=== PATIENT | male | born 1985 | race Caucasian/White ===

== ENCOUNTER 2023-02-19 17:28 | Emergency (ER) | payer SELFPAY ==
[2023-02-19 17:43] VITALS: BP 159/91; PULSE 96; RESP 16; TEMP 37.1; O2SAT 100; BMI 26.9
--- NOTE | 2023-02-19 18:39 | CTR_ITS ---
PROCEDURE INFORMATION: Exam: CT Right Upper Extremity With Contrast, Hand Exam date and time: 02/19/2023 7:39 PM Age: 37 years old Clinical indication: Pain; Hand; Right; Additional info: Infection, cellulitis R/O abscess TECHNIQUE: Imaging protocol: Computed tomography of the right upper extremity with contrast. Exam focused on the hand. Radiation optimization: All CT scans at this facility use at least one of these dose optimization techniques: automated exposure control; mA and/or kV adjustment per patient size (includes targeted exams where dose is matched to clinical indication); or iterative reconstruction. Contrast material: OMNI 350; Contrast volume: 100 ml; Contrast route: INTRAVENOUS (IV); REPORTING DATA: Count of CT and Cardiac NM exams in prior 12 months: This patient has received 0 known CTs and 0 known cardiac nuclear medicine studies in the 12 months prior to the current study. COMPARISON: No relevant prior studies available. RADIATION DOSE METRICS: Total DLP (mGy-cm): 157 FINDINGS: Bones/joints: Along the dorsal aspect of the medial hand (dorsal to the bases of the 4th and 5th metacarpals, there is a serpiginous rim enhancing fluid collection. Dominant component measures 1.6 x 1.8 x 0.7 cm (series 4, image 93 and series 9, image 30). There is a tract to a smaller more proximal collection measuring 1.9 x 1.3 x 0.4 cm (series 4, image 104 and series 9, image 30). No destructive bony lesions. No radiopaque foreign body. Soft tissues: There is extensive dorsal and medial soft tissue swelling. No soft tissue gas. No radiopaque foreign body. Vasculature: Visualized vessels are patent without convincing venous thrombus. CT/CT hand RT w con [id number] IMPRESSION: Extensive soft tissue swelling noted over the dorsum of the hand. There is a serpiginous dorsal fluid collection with 2 dominant components connected by a thin tract compatible with abscess, best seen on series 9, image 30.
--- NOTE | 2023-02-19 18:41 | ED_ITS ---
HPI - Skin/Abscess/Foreign Bdy 2 General: Chief complaint: Skin/Abscess/Foreign Body Stated complaint: right hand- elbow swollen/ possible infection Time Seen by Provider: 02/19/23 18:26 History of Present Illness: Patient presents to the ER with complaints of right hand swelling painful, thinks he got bit by a spider approximately 3 days ago. Has been swelling and increasing pain since then. The initial bite appears to be on the dorsum of the right hand with swelling and erythema going at least up to his wrist. With tenderness going about longterm up his arm. Patient does have movement in all digits but moving them makes him worse. As far as the pain goes. Patient does not take anything prior to arrival. Patient is not allergic to anything. Review of Systems 2 General: Reports: 10 or more systems reviewed and unremarkable except in HPI and below Physical Exam 2 Const: COMMON NORMALS: no acute distress, average body habitus, patient oriented x3, no limitations, healthy appearing, alert and well nourished HENMT: COMMON NORMALS: normocephalic, atraumatic, hearing grossly normal bilaterally, external ears normal, Normal external nose present, moist oral mucous membranes and oropharynx normal HEAD & SCALP: normocephalic and atraumatic NOSE: Normal external nose present EXTERNAL EAR: Yes external ears normal Neck/C-Spine: COMMON NORMALS: full ROM, no lymphadenopathy, supple, no meningeal signs, no JVD and Thyroid normal THYROID: Thyroid normal Chest: COMMONS NORMALS: normal inspection of the chest and normal palpation of entire chest wall Resp: COMMON NORMALS: normal respiratory effort, No retractions, No use of accessory muscles and clear to auscultation bilaterally AUSCULTATION: clear to auscultation bilaterally Cardio: COMMON NORMALS: no JVD, regular rate, regular rhythm, S1 normal heart sound present, S2 normal heart sound present, No gallops present (Cardio), No clicks present (Cardio), No murmurs present (Cardio) and No rub (Cardio) R ATE: regular rate RHYTHM: regular rhythm HEART SOUNDS: S1 normal heart sound present and S2 normal heart sound present GI: COMMON NORMALS: Normal to inspection, nondistended, normoactive bowel sounds present, Soft to palpation, non-tender, No hepatosplenomegaly present and no masses PALPATION: Yes Soft to palpation and Yes No hepatosplenomegaly present Extremity: NARRATIVE EXTREMITY EXAM: Redness and swelling to the dorsum of right hand going up at least into the wrist area. Tenderness goes all the way up to the mid forearm. Neuro: COMMON NORMALS: patient oriented x3 SENSORIUM/ORIENTATION: Yes alert MENINGEAL SIGNS: Yes no meningeal signs Course 2 Vital Signs: Vital signs: Vital Signs Temperature 98.7 F 02/19/23 17:43 Pulse Rate 83 02/19/23 20:29 Respiratory Rate 18 02/19/23 20:29 Blood Pressure 128/78 02/19/23 20:29 Pulse Oximetry 96 02/19/23 20:29 Oxygen Delivery Me thod Room Air 02/19/23 20:29 MDM - Skin/Abscess/Foreign Bdy Medicial Decision Making Patient presents to the ER with a possible spider bite on his dorsum of his right hand Ortho was consulted Dr. Martinez does not do hands. Dr. Valencia general surgery was consulted and he says he does not do hands either. Upon talking to patient explaining these results and the consult with his doctors and the need to be transferred to [place] to a hand surgeon to have this opened up and drained patient is inclined to not want to do this. It was described in detail since these are abscesses a they probably will not resolve with antibiotics alone. Patient said he is willing to take the chance on p.o. antibiotics and he can come back if they do not resolve. I said this is AGAINST MEDICAL ADVICE and letting him go home on oral antibiotics so he will have to sign AMA form but we will prescribe him Levaquin 500 mg 1 pill once a day for 10 days. Differential Diagnosis Likely abscess of skin or subcutaneous tissue and cellulitis; Unlikely viral exanthem, dermatophytosis, urticaria, herpes zoster, allergic reaction to drug, eczema, insect bites, impetigo or contact dermatitis Medical Records I reviewed the patient's medical records. Lab Data I reviewed the patient's lab results. 02/19/23 18:30 02/19/23 18:[address] 02/19/23 18:39 IMPRESSION: Extensive soft tissue swelling noted over the dorsum of the hand. There is a serpiginous dorsal fluid collection with 2 dominant components connected by a thin tract compatible with abscess, best seen on series 9, image 30. Laboratory Results WBC 11.01 10^3/uL (3.29-11.43) 02/19/23 18:30 RBC 5.57 10^6/uL (3.85-5.65) 02/19/23 18: Hgb 17.00 g/dL (11.27-16.99) H 02/19/23 18:30 Hct 50.0 % (37-53) 02/19/23 18:30 MCV 89.8 fl (82-101) 02/19/23 18: MCH 30.5 pg (27-33) 02/19/23 18: MCHC 34.0 g/dL (30-55) 02/19/23 18: RDW 11.9 % (12.1-15.1) L 02/19/23 18: Plt Count 330 10^3/cmm (157-399) 02/19/23 18: MPV 9.1 fL (7.4-10.4) 02/19/23 18:30 Neut % (Auto) 71.5 % 02/19/23 18:30 Lymph % (Auto) 20.9 % 02/19/23 18:30 [place] % (Auto) 6.0 % 02/19/23 18:30 Eos % (Auto) 0.9 % 02/19/23 18: Baso % (Auto) 0.5 % 02/19/23 18: Neut # (Auto) 7.87 10^3/uL (1.8-7.7) H 02/19/23 18:30 Lymph # (Auto) 2.3 10^3/uL (0.8-4.8) 02/19/23 18:30 [place] # (Auto) 0.7 10^3/uL (0.2-0.9) 02/19/23 18:30 Eos # (Auto) 0.1 10^3/uL (0.0-0.8) 02/19/23 18: Baso # (Auto) 0.1 10^3/uL (0.0-0.1) 02/19/23 18:30 Nucleated RBC % (auto) 0 % 02/19/23 18:30 Nucleated RBCs # 0.0 /100WBC 02/19/23 18: Sodium 135 mmol/L (136-145) L 02/19/23 18:30 Potassium 3.9 mmol/L (3.5-5.1) 02/19/23 18:30 Chloride 99 mmol/L (98-107) 02/19/23 18:30 Carbon Dioxide 22 mmol/L (22-29) 02/19/23 18:30 Anion Gap 17.9 (5-19) 02/19/23 18:30 BUN 7 mg/dL (6-20) 02/19/23 18:30 Creatinine 0.7 mg/dL (0.7-1.2) 02/19/23 18:30 GFR Calculation 126.2 mL/min (90-130) 02/19/23 18:30 Glucose 147 mg/dL (65-115) H 02/19/23 18:30 Calculated Osmolality 281 mOsm/kg (285-295) L 02/19/23 18:30 Lactic Acid 1.9 mmol/L (0.5-2.2) 02/19/23 18:30 Calcium 9.4 mg/dL (8.5-10.5) 02/19/23 18:30 Total Bilirubin 0.7 mg/dL (0.15-1.2) 02/19/23 18:30 AST 9 U/L (0-40) 02/19/23 18:30 ALT 17 U/L (0-41) 02/19/23 18:30 Alkaline Phosphatase 77 U/L (40-130) 02/19/23 18:30 C-Reactive Protein 85.6 mg/L (0.0-4.9) H 02/19/23 18:30 Total Protein 7.9 g/dL (6.6-8.7) 02/19/23 18:30 Albumin 4.3 g/dL (3.5-5.2) 02/19/23 18:30 Globulin 3.6 g/dL (1.3-4.6) 02/19/23 18:30 Procalcitonin 0.06 ng/mL (0-0.5) 02/19/23 18:30 All radiology interpretation(s) finalized by discharge Discharge Plan Discharge Patient Disposition: Left Against Medical Advice Clinical Impression: Abscess of skin or subcutaneous tissue Qualifiers: Site of cutaneous abscess: extremity Site of cutaneous abscess of extremity: h and Laterality: right Qualified Code(s): L02.511 - Cutaneous abscess of right hand Condition: Stable Prescriptions: New levofloxacin 500 mg tablet 500 mg PO DAILY 10 Days Qty: 10 0RF hydrocodone-acetaminophen 5-325 mg tablet 1 tab PO Q6H PRN (Reason: pain) Qty: 10 0RF Referrals: Oscar Silva MD [Primary Care Provider] - 1 week Patient Instructions: Abscess (ED), Against Medical Advice (ED) Activity Restrictions/Additional Instructions: Please take all your antibiotics as described. Please watch for red streaking, worsening pain, worsening purulent debris/discharge, fever or chills,. If any these happen please return to the ER immediately for further evaluation and treatment. Coding Level of Care Code ED Transit Vehicle Inspector for Jyotsna Pool
[2023-02-19 18:48] LABS: Basophils # 0.1 10^3/uL (0.0-0.1); Basophils % 0.5 %; Eosinophils # 0.1 10^3/uL (0.0-0.8); Eosinophils % 0.9 %; Lymphocytes # 2.3 10^3/uL (0.8-4.8); Lymphocytes % 20.9 %; Mean Corpuscular Hemoglobin 30.5 pg (27-33); Mean Corpuscular Volume 89.8 fl (82-101); Mean Platelet Volume 9.1 fL (7.4-10.4); Monocytes # 0.7 10^3/uL (0.2-0.9); Neutrophils # 7.87 10^3/uL (1.8-7.7); Neutrophils % 71.5 %; Nucleated Red Blood Cells % 0 %; Platelet Count 330 10^3/cmm (157-399); Red Blood Count 5.57 10^6/uL (3.85-5.65); Red Cell Distribution Width 11.9 % (12.1-15.1); White Blood Count 11.01 10^3/uL (3.29-11.43)
[2023-02-19 19:01] LABS: Alanine Aminotransferase 17 U/L (0-41); Albumin Level 4.3 g/dL (3.5-5.2); Alkaline Phosphatase 77 U/L (40-130); Anion Gap 17.9 (5-19); Aspartate Amino Transferase 9 U/L (0-40); Blood Urea Nitrogen 7 mg/dL (6-20); C Reactive Protein 85.6 mg/L (0.0-4.9); Calcium 9.4 mg/dL (8.5-10.5); Carbon Dioxide 22 mmol/L (22-29); Chloride 99 mmol/L (98-107); Globulin 3.6 g/dL (1.3-4.6); Glomerular Filtration Rate 126.2 mL/min (90-130); Glucose 147 mg/dL (65-115); Osmolality Calculated 281 mOsm/kg (285-295); Potassium 3.9 mmol/L (3.5-5.1); Sodium 135 mmol/L (136-145); Total Bilirubin 0.7 mg/dL (0.15-1.2); Total Protein 7.9 g/dL (6.6-8.7)
[2023-02-19 19:02] LABS: Lactic Sepsis W/Reflex 1.9 mmol/L (0.5-2.2)
[2023-02-19 19:08] LABS: Procalcitonin 0.06 ng/mL (0-0.5)
[2023-02-19] MEDS: ketorolac 30 mg/mL INJ IVP (19:08)
[2023-02-19] MEDS: piperacillin-tazobactam 3.375 GM in sodium chloride 0.9% (plus) 50 ML IV (19:10)
[2023-02-19 19:12] VITALS: BP 128/77; PULSE 88; RESP 16; O2SAT 96
[2023-02-19 19:30] VITALS: BP 119/76; PULSE 81; RESP 16; O2SAT 97
[2023-02-19] MEDS: iohexol 350 mg/mL 500 mL Btl (per mL) IV (19:55)
[2023-02-19 20:29] VITALS: BP 128/78; PULSE 83; RESP 18; O2SAT 96
--- NOTE | 2023-02-19 21:02 | PC.NURSE ---
Pt sent home with 2x Hydrocodone 5/[address] Miranda's orders.
[2023-02-19 21:05] VITALS: BP 131/81; PULSE 88; RESP 18; O2SAT 96
== END 2023-02-19 21:00 | disposition left against medical advice (07) ==
PROVIDERS: Emergency Provider Emergency Medicine; Family Provider Family Medicine; PCP Family Medicine
DX: L02.511 Cutaneous abscess of right hand (principal); Z53.29 Procedure and treatment not carried out because of patient's decision for other reasons
CPT/HCPCS: 73201; 80053; 83605; 84145; 85025; 86140; 87040; 87070; 87077; 87186; 87205; 96365; 96375; 99285; J1885; J2543; Q9967

== ENCOUNTER 2024-06-28 12:53 | Emergency (ER) | payer SELFPAY ==
--- NOTE | 2024-06-28 12:54 | XRR_ITS ---
PROCEDURE INFORMATION: Exam: XR Left Foot Exam date and time: 06/28/2024 1:17 PM Age: 39 years old Clinical indication: Injury or trauma; Other: Fall from roof; Blunt trauma; Foot; Left TECHNIQUE: Imaging protocol: Radiologic exam of the left foot. Views: 3 or more views. COMPARISON: CR XR ankle LT min 3V* [id number] 06/28/2024 1:16 PM FINDINGS: Bones/joints: Normal. No fracture, dislocation or malalignment. Joint surfaces are perserved. Soft tissues: Normal. XR/XR foot LT min 3V* [id number] IMPRESSION: No acute bony abnormalities.
--- NOTE | 2024-06-28 12:54 | XRR_ITS ---
PROCEDURE INFORMATION: Exam: XR Left Ankle Exam date and time: 06/28/2024 1:16 PM Age: 39 years old Clinical indication: Injury or trauma; Other: Fall from roof; Blunt trauma; Ankle; Left TECHNIQUE: Imaging protocol: Radiologic exam of the left ankle. Views: 3 or more views. COMPARISON: No relevant prior studies available. FINDINGS: Bones/joints: Osseous structures are intact. No fracture or malalignment. Visualized joint surfaces are preserved. Soft tissues: Unremarkable. XR/XR ankle LT min 3V* [id number] IMPRESSION: Negative exam. No acute bony abnormalities.
--- NOTE | 2024-06-28 12:54 | XRR_ITS ---
PROCEDURE INFORMATION: Exam: XR Right Ankle Exam date and time: 06/28/2024 1:14 PM Age: 39 years old Clinical indication: Injury or trauma; Other: Fall from roof; Blunt trauma; Ankle; Right TECHNIQUE: Imaging protocol: Radiologic exam of the right ankle. Views: 3 or more views. COMPARISON: CR XR foot RT min 3V* [id number] 06/28/2024 1:09 PM FINDINGS: Bones/joints: There is a comminuted displaced fracture of the calcaneus extending from the posterior tuberosity into the body of the calcaneus. There is probable extension to the subtalar joint as well as the anterior process of the calcaneus. Findings result in some displacement and flattening of Boehler's angle. The ankle mortise is preserved. Soft tissues: Unremarkable. XR/XR ankle RT min 3V* [id number] IMPRESSION: Acute comminuted calcaneal fracture which could be further assessed on CT examination of the ankle.
--- NOTE | 2024-06-28 12:54 | XRR_ITS ---
PROCEDURE INFORMATION: Exam: XR Right Foot Exam date and time: 06/28/2024 1:09 PM Age: 39 years old Clinical indication: Injury or trauma; Other: Fall from roof; Blunt trauma; Foot; Right TECHNIQUE: Imaging protocol: Radiologic exam of the right foot. Views: 3 or more views. COMPARISON: No relevant prior studies available. FINDINGS: Bones/joints: There is a acute comminuted fracture involving the calcaneus extending from the posterior calcaneal margin into the body of the calcaneus with probable extension to the subtalar joint. The anterior process of the calcaneus also appears to be fractured. Findings could be further assessed on CT exam. Remainder of the visualized osseous structures and joint surfaces are intact. Soft tissues: Normal. XR/XR foot RT min 3V* [id number] IMPRESSION: Acute comminuted calcaneal fracture which could be further assessed on CT exam.
[2024-06-28 13:04] VITALS: BP 102/65; PULSE 75; RESP 18; TEMP 36.4; O2SAT 97
--- NOTE | 2024-06-28 13:55 | ED_ITS ---
HPI - Fall General: Chief Complaint: Fall Stated Complaint: fall (both ankles injured) Time Seen by Provider: 06/28/24 13:10 Source: patient Mode of arrival: wheelchair Limitations: no limitations History of Present Illness: Patient is a 39-year-old male who presents to the ED today for evaluation mainly involving his right foot after he fell from a roof at a height of approximately 15 feet. Patient states he landed directly on his bilateral feet and ankles. He is complaining mainly of pain to his right foot/heel. He has some mild lower back pain. He denies striking his head or LOC. No neck pain. Patient states he is not able to bear weight due to the pain of his feet and ankles. MD complaint: fall Onset (ago): hour(s) Fall from: from height (distance) (15 ft) Fall witnessed: yes, by bystander Place fall occurred: work Loss of consciousness: None Prolonged down time: no Symptoms prior to fall: none Context: tripped/slipped Location of injury - extremities: Bilateral: ankle and foot Severity: severe Severity scale (1-10): >10 Associated symptoms-after fall: Reports no associated symptoms and difficulty walking (due to heel pain); Denies abdominal pain, chest pain, headache(s), hematuria, lightheadedness or neck pain Related Data Previous Rx's ?Medication ?Instructions ?Recorded hydrocodone 10 mg-acetaminophen 1 tab PO .q 4-6 PRN pa in #20 tabs 06/28/24 325 mg tablet Allergies Allergy/AdvReac Type Severity Reaction Status Date / Time No Known Allergies Allergy Verified 06/28/24 13:08 Review of Systems Eyes: Denies: change in vision, blurry vision, photophobia, eye discharge, floaters or seeing flashes ENMT: Denies: throat pain, odynophagia, ear or mastoid pain, ear discharge, nasal discharge, epistaxis or sinus pain Card: Denies: chest pain, palpitations, lightheadedness, syncope or pre- syncope Resp: Denies: dyspnea or pain on inspiration GI: Denies: abdominal pain : Denies: flank pain or hematuria Musc: Reports: back pain, extremity pain (bilateral feet), joint pain (bilateral ankles) and limited range of motion; Denies: neck pain Neuro: Reports: difficulty walking (due to heel pain); Denies: headache(s), numbness in extremities, weakness in extremities, sensory changes or dizziness Physical Exam Const: COMMON NORMALS: average body habitus, patient oriented x3, no limitations, healthy appearing, alert and well nourished GENERAL APPEARANCE: cooperative and in distress (uncomfortable appearing due to pain in R foot) ORIENTATION/CONSCIOUSNESS: Yes awake, Yes oriented to person, Yes oriented to place and Yes oriented to time HENMT: COMMON NORMALS: normocephalic, atraumatic and TM's normal bilaterally HEAD & SCALP: normal to inspection, normocephalic and atraumatic; no Diaz's sign, no hematoma and no raccoon eyes FACE & SINUS: normal facial exam TYMPANIC MEMBRANE: TM's normal bilaterally MOUTH: other (no intraoral injuries noted) Eye: COMMON NORMALS: Equal, round and reactive pupils present and EOMs intact bilaterally GENERAL EYE: appearance normal, both eyes and all related structures and normal light reflex PUPIL: Yes Equal, round and reactive pupils present DIRECT OPHTHALMOSCOPY: Yes normal light reflex Neck/C-Spine: COMMON NORMALS: full ROM GENERAL: Yes normal visual inspection CERVICAL SPINE: Yes cervical ROM normal, No pain with cervical ROM, No Cervical spine tenderness, No step off deformity and No Paracervical muscle tenderness Chest: COMMONS NORMALS: normal inspection of the chest and normal palpation of entire chest wall Resp: COMMON NORMALS: normal respiratory effort and clear to auscultation bilaterally AUSCULTATION: clear to auscultation bilaterally Cardio: COMMON NORMALS: regular rate and regular rhythm RATE: regular rate RHYTHM: regular rhythm GI: COMMON NORMALS: Normal to inspection, nondistended, normoactive bowel sounds present, Soft to palpation, non-tender, No hepatosplenomegaly present and no masses INSPECTION: Yes normal to inspection and No abdominal wall ecchymosis AUSCULTATION: Yes normoactive bowel sounds PALPATION: Yes Soft to palpation and Yes No hepatosplenomegaly present Back/Pelvis: COMMON NORMALS: thoracic and lumbar spine normal to inspection, thoraco-lumbar ROM normal and straight leg raise negative bilaterally THORACIC SPINE/UPPER BACK: No thoracic spinal tenderness LUMBAR SPINE/LOWER BACK: Yes paraspinal muscle tenderness PELVIS: Yes buttocks normal SACROILIAC JOINTS: Yes SI joints normal SACRUM: no tenderness COCCYX: no tenderness Extremity: COMMON NORMALS: normal to inspection, capillary refill normal and no calf tenderness GENERAL: Yes normal exam except as noted RIGHT LOWER EXTREMITY: Yes foot & digits and Yes foot & digits LEFT LOWER EXTREMITY: Yes ankle joint and Yes foot & digits OTHER: pain to bilateral ankles/heels; bilateral heel contusions present; edema mainly involving R calcaneous; NV intact Neuro: CASS COMA SCALE: document GCS findings [place] coma scale eye opening: Spontaneous [place] coma scale verbal response: Orientated [place] coma scale motor response: Obey commands [place] coma scale total score: 15 COMMON NORMALS: patient oriented x3, CN's II-XII intact bilaterally, moves all extremities, no focal motor deficits and no sensory deficits noted SENSOR IUM/ORIENTATION: Yes alert, Yes oriented to person, Yes oriented to place and Yes oriented to time SPEECH: speech normal GAIT: Yes Normal gait present Skin: TRAUMA: no lacerations or abrasions Course Consultations: Consultation #1: Dr. Morris-recommending CT imaging of calcaneal fracture for surgical planning; splint/crutches/will see him tomorrow at 12:45 Vital Signs: Vital signs: Vital Signs Temperature 97.5 F L 06/28/24 13:04 Pulse Rate 76 06/28/24 14:40 Respiratory Rate 18 06/28/24 13:04 Blood Pressure 102/65 06/28/24 13:04 Pulse Oximetry 97 06/28/24 14:40 Oxygen Delivery Me thod Room Air 06/28/24 14:40 MDM - Fall Medical Decision Making Patient here for main complaint of right heel pain after a fall from a roof at a height of 15 feet. He was found to have a severely comminuted calcaneal fracture. This will be surgical. CT imaging obtained at the request of podiatry. He will be splinted and follow-up with them at 12:45 tomorrow. Imaging of his back and pelvis obtained and was negative. He had some tenderness to the left foot and ankle as well although x-ray imaging is unremarkable. Patient was given crutches. He states he does have a wheelchair at home he may use as well. He will be prescribed pain medications. Recommend ice and elevation as well. Medical Records I reviewed the patient's medical records. Lab Data I reviewed the patient's lab results. Radiology Impressions Ankle X-Ray 06/28/24 12:54 IMPRESSION: Acute comminuted calcaneal fracture which could be further assessed on CT examination of the ankle. ADDENDUM: 06/28/24 1442 There are 2 corticated bony structures adjacent to the inferolateral margin of the calcaneus likely representing a bipartite accessory ossicle that is developmental in nature. Foot X-Ray 06/28/24 12:54 IMPRESSION: Acute comminuted calcaneal fracture which could be further assessed on CT exam. Foot CT 06/28/24 13:56 IMPRESSION: 1. Severely comminuted calcaneal fracture involving all surfaces including the posterior subtalar joint. 2. Loss of the normal Boehler angle. 3. Fracture fragments abut the peroneal tendons and sheath. No entrapment of the tendons by the fracture but the peroneus brevis and longus are slightly by a fracture fragment. Lumbar Spine X-Ray 06/28/24 14:09 IMPRESSION: No acute bony abnormalities. Pelvis X-Ray 06/28/24 14:09 IMPRESSION: No acute bony abnormalities.. All radiology interpretation(s) finalized by discharge Discharge Plan Discharge Patient Disposition: Home Clinical Impression: Fall from roof, Closed fracture of right calcaneus Condition: Stable Prescriptions: New hydrocodone-acetaminophen 10-325 mg tablet 1 tab PO .q 4-6 PRN (Reason: pain) Qty: 20 0RF Discontinued hydrocodone-acetaminophen 5-325 mg tablet 1 tab PO Q6H PRN (Reason: pain) Qty: 10 0RF Discharge Orders: Discharge ED (Routine); Ordered 06/28/24 Ordered By: Jessica Vargas Referrals: Lior Morris DPM [Physician] - Patient Instructions: Calcaneal Fracture (ED), Opioid Safety, Pain Management Activity Restrictions/Additional Instructions: As we discussed, absolutely no weight bearing on your right heel. You need to stay in your splint until your follow-up appointment with Dr. Morris tomorrow. He will see you at 12:45 tomorrow. Please arrive early for this appointment. We have given you crutches prior to discharge. Due to the contusion of your left foot and ankle you are not sure if you could use these. You did indicate you have a wheelchair at home you may use. You need to ice and elevate the right leg to help with pain/swelling. You need to take your pain medications around the clock over the next 24-48 hours to keep ahead of your pain. Print Language: Eritrean Coding Level of Care Code ED Circuit Clerk for Jyotsna Pool
--- NOTE | 2024-06-28 13:56 | CT_ITS ---
WS: [id number] CT RIGHT FOOT, NONCONTRAST HISTORY: calcaneal fracture Technique: All CT scans at [facility] use at least one of these dose optimization techniques: automated exposure control; mA and/or kV adjustment per patient size (includes targeted exams where dose is matched to clinical indication); or iterative reconstruction. DLP: 160.42 mGy.cm COMPARISON: Radiograph 06/28/2024. Severely comminuted fractures involving the entire RIGHT calcaneus. There are vertical, oblique and horizontal components extending extra-articular and intra- articular. Multiple fracture lines extend to involve the medial and lateral surfaces of the calcaneus and the posterior subtalar joint. There are multiple osseous fragments. There is subtalar joint involvement and a fracture through the base of the anterior calcaneal process. Fractures extend to the plantar surface. There is loss of the normal Bohler angle. Cuboid and the metatarsals are intact. Talus appears intact. The distal tibia- fibula are intact. No widening of the Lisfranc articulation. Large amount of edema surrounding the calcaneus. Peroneal tendons are closely associated with the fracture of the lateral calcaneus. No entrapment but there may be slight separation. CT/CT foot RT wo con* [id number] IMPRESSION: 1. Severely comminuted calcaneal fracture involving all surfaces including the posterior subtalar joint. 2. Loss of the normal Boehler angle. 3. Fracture fragments abut the peroneal tendons and sheath. No entrapment of t he tendons by the fracture but the peroneus brevis and longus are slightly sepa rated by a fracture fragment.
--- NOTE | 2024-06-28 14:09 | XRR_ITS ---
PROCEDURE INFORMATION: Exam: XR Lumbosacral Spine Exam date and time: 06/28/2024 3:08 PM Age: 39 years old Clinical indication: Injury or trauma; Fall; Blunt trauma (contusions or hematomas) TECHNIQUE: Imaging protocol: Radiologic exam of the lumbosacral spine. Views: 2 or 3 views. COMPARISON: CR XR pelvis 1-2V* [id number] 06/28/2024 3:08 PM FINDINGS: Bones/joints: Lumbar curvature and alignment is unremarkable. Mild-moderate degenerative changes throughout the lower thoracic and mid-lower lumbar spine with mild disc space narrowing and endplate sclerosis. There is some accompanying facet arthrosis lower lumbar spine. There are no compression fractures detected. No spondylolisthesis. Pedicles are intact Soft tissues: Unremarkable. XR/XR lumbar spine 2-3V* [id number] IMPRESSION: No acute bony abnormalities.
--- NOTE | 2024-06-28 14:09 | XRR_ITS ---
PROCEDURE INFORMATION: Exam: XR Pelvis Exam date and time: 06/28/2024 3:08 PM Age: 39 years old Clinical indication: Injury or trauma; Fall; Blunt trauma (contusions or hematomas); Bilateral; Pelvic region TECHNIQUE: Imaging protocol: Radiologic exam of the pelvis. Views: 1 or 2 view. COMPARISON: CR XR lumbar spine 2-3V* [id number] 06/28/2024 3:08 PM FINDINGS: Bones/joints: Unremarkable. No fracture, malalignment or deformity detected. No significant degenerative joint changes. Soft tissues: There is a 4 mm rounded metallic density projecting along the medial aspect of the upper thigh that may be extraneous to the patient with small foreign body to the excluded.. XR/XR pelvis 1-2V* [id number] IMPRESSION: No acute bony abnormalities..
[2024-06-28] MEDS: morphine 4 mg/mL SDV 1 mL IM (14:37)
[2024-06-28] MEDS: ondansetron 2 mg/ML SDV 2 mL 4 MG IM (14:37)
[2024-06-28 14:40] VITALS: PULSE 76; O2SAT 97
[2024-06-28] MEDS: HYDROmorphone 0.5 MG/0.5 ML INJ 1 MG SUBCUT (16:00)
[2024-06-28 16:21] VITALS: BP 110/68; PULSE 91; O2SAT 99
== END 2024-06-28 16:23 | disposition home or self-care (01) ==
PROVIDERS: Emergency Provider Physician Assistant; PCP Family Medicine
DX: S92.041A Displaced other fracture of tuberosity of right calcaneus, initial encounter for closed fracture (principal); M25.572 Pain in left ankle and joints of left foot; W13.2XXA Fall from, out of or through roof, initial encounter; M54.50 Low back pain, unspecified
CPT/HCPCS: 29515; 72100; 72170; 73610; 73630; 73700; 96372; 99284; E0114; J1171; J2270; J2405

== ENCOUNTER 2024-07-01 11:44 | Day surgery (SDC) | payer SELFPAY ==
[2024-07-01] VITALS (8 sets, daily range): BP systolic 90–123; BP diastolic 40–69; PULSE 69–92; RESP 16–20; TEMP 36.2–36.6; O2SAT 94–100; BMI 26.9
--- NOTE | 2024-07-01 12:13 | W.PM.OPSUD ---
Surgery/Procedure H&P Update DATE OF PROCEDURE: July 01, 2024 DATE H&P PERFORMED: 06/29/24 H&P UPDATE INFORMATION: I have reviewed H&P completed within last 30 days, I have examined patient prior to procedure, No changes to prior documentation and Risks and benefits of the procedure reviewed PREOP DIAGNOSIS: Right calcaneal fracture PLANNED PROCEDURE: Operation Date: 07/01/24 13:35 Proposed Procedures p RIGHT ORIF Calcaneous(Right) - Lior Morris DPM
[2024-07-01] MEDS: gabapentin 300 mg Capsule PO (12:23)
[2024-07-01] MEDS: CELEcoxib 200 mg Capsule 400 MG PO (12:24)
[2024-07-01] MEDS: sodium chloride 0.9% 1,000 ML 30 ML IV (12:25)
--- NOTE | 2024-07-01 12:28 | ANES.PREANE2 ---
Pre-Anesthetic Assessment Height/Weight: Height 6 ft 2 in Weight 210 lb O2 Del Method Room Air 07/01/24 12:08 Preop Diagnosis: Right calcaneal fracture Operation Date: 07/01/24 13:35 Proposed Procedures p RIGHT ORIF Calcaneous(Right) - LINNETTE HdezM Was Beta Nitin taken within 24 hours: N/A Was Clonidine taken within 24 hours: N/A Last intake: Intake Last Liquid Date 06/30/24 Last Liquid Time 22:30 Last Solid Date 06/30/24 Last Solid Time 22:30 Social Tobacco and No alcohol Exam alert, oriented x 3, clear to auscultation bilaterally and regular rate & rhythm Airway Submandibular: within normal limits Cervical ROM: within normal limits Mallampati: Class I Dentition: full Comments: Comments: poor dentition, denies any loose teeth Anesthetic Plan ASA status: 2 Anesthesia: General and Regional (specify below) Other: No prior issues with anesthesia NPO since yesterday evening Patient is a very active individual, 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 Current smoker Denies any cardiac issues Plan for general anesthesia with post induction nerve block Medications/Allergies Home Medications ?Medication ?Instructions ?Recorded ?Confirmed ?Last Taken ?Type ibuprofen 400 mg tablet 1,000 mg PO TID 06/30/24 06/30/24 06/30/24 History cyclobenzaprine 10 mg tablet 10 mg PO TID PRN muscle spasm #21 07/01/24 Unknown Rx tabs gabapentin 100 mg capsule 100 mg PO TID PRN pain (scale 07/01/24 Unknown Rx score 4-6) 10 days #30 caps hydrocodone 10 mg-acetaminophen 1 tab PO Q6H PRN pain 7 days #28 07/01/24 Unknown Rx 325 mg tablet tabs Allergies Allergy/AdvReac Type Severity Reaction Status Date / Time No Known Allergies Allergy Verified 06/29/24 12:44 Current Medications Generic Name Dose Route Start Last Admin Trade Name Freq PRN Reason Stop Dose Admin Sodium Chloride 1,000 mls @ 30 mls/hr 07/01/24 12:00 07/01/24 12:25 Sodium Chloride 0.9% IV 07/02/24 11:59 30 mls/hr .Q24H FILOMENA Administration PFSH Anesthesia Social History (Updated 06/29/24 @ 12:51 by Gurvinder Myers LPN) Smoking and tobacco/nicotine status: never used tobacco/nicotine Alcohol intake: never Substance/Drug Use: never Data Anesthesia Cardiac Studies: No Data to Display
[2024-07-01] MEDS: ceFAZolin 2,000 mg SDV 2000 MG IVP (12:45)
[2024-07-01] MEDS: tranexamic acid 1,000 mg/10mL SDV 1000 MG IV (13:00)
--- NOTE | 2024-07-01 13:00 | ANES.PROC ---
Anesthesia Procedures Procedure/Date: 07/01/24 Nerve Block ^: Nerve Block 1: Main Anesthesia: general anesthesia Time Out Performed: Yes Consent: requested by attending/covering physician and from patient Nerve block location: popliteal Anesthesia monitors applied: pulse oximetry, EKG, BP cuff and oxygen Nerve block position: supine Anesthetic Used: ropivicaine 0.5% Amount of anesthesia used (mL): 30 Ultrasound used to: recognize landmarks Interscalene/Femoral BLK: other needle (pjunk) Injection: neg aspiration of heme Patient Tolerated Procedure: well Complications: none Additional Comments: decadron 4mg
--- NOTE | 2024-07-01 13:49 | P.BOP_ITS ---
Date of Procedure: 05/29/23 Surgeon: Lior Morris DPM Dye Machine Tender(s): Trino Lopez Procedure(s) performed: Open reduction internal fixation right calcaneus Findings of the procedure(s): Right calcaneal fracture tongue type Estimated blood loss: 5 mL Specimen(s) removed: No specimens Post-operative diagnosis: Right calcaneal fracture
--- NOTE | 2024-07-01 13:50 | P.OP_ITS ---
Operative Report Date of procedure: July 01, 2024 Pre-op diagnosis: Closed fracture of right calcaneus S92.014A Post-op diagnosis: Closed fracture of right calcaneus S92.014A Procedure done: Open reduction internal fixation right calcaneus. CPT code 44894 Implants: [place] 5.5 mm cannulated screw x 2, 4 nylon Specimens removed/disposition: No specimens removed Surgeon: Lior Morris DPM Supervisor Ben[employer] Refining: Jessica Jameson Estimated blood loss: 5 22 minutes IV fluids: See intraoperative documentation Urine output: None Complications: None Brief History: Patient examined and evaluated, findings and treatment options discussed with patient at length. He sustained a complex comminuted fracture of the right calcaneus after a 15 foot fall off of a roof. X-ray of the right foot as well as CT scan of the right foot per my interpretation that were taken on June 28, 2024 demonstrate a complex calcaneal fracture fracture has extended into the subtalar joint also into the calcaneocuboid joint he has a interpositional fragment also has a tongue type body fracture that is more than 5 mm displaced. There is no necrosis of skin at the posterior heel, I explained to the patient that this is of concern given the tongue type fracture pattern. Advised patient to elevate his foot remain strict nonweightbearing and help to control edema by elevation and ice behind the knee in preparation for surgery this week if insurance authorization is is not obtained and soft tissue envelope not appropriate he would have to wait until next week when things improved. At this point there are no fracture blisters. I reviewed at length with the patient, the risks, potential complications, benefits, alternatives, expectations, and typical outcomes associated with the surgery. The risks and potential complications were explained in detail, including but not limited to infection, wound dehiscence or soft tissue complications, bleeding and hematoma, chronic edema, neuritis or nerve damage producing numbness or chronic pain, CRPS, failure to relieve pain or worsening pain, thick / painful / unsightly scar, limited motion / stiffness, malposition, delayed union, malunion, or nonunion, fracture, reaction to implants, anesthetic complications, venous thromboembolism, and deformity recurrence. I discussed the notion of no reg rets with the patient as it pertains to complications and outcomes. The patient seemed to understand the nature of the proposed care and required convalescence. They asked appropriate questions, answered to their satisfaction. They are aware no guarantees can be made as to a satisfactory outcome and they understand there may be other possible unforeseen complications or outcomes not listed here that will be treated accordingly if they arise. There were no written or implied guarantees given to the patient. They gave informed consent to proceed. Procedure: Under mild sedation the patient was brought to the operating room and positioned on the operating room table in supine position. Timeout was performed. Anesthesia was administered by the anesthesia service. Of note right popliteal block was performed preoperatively per anesthesia. Well-padded pneumatic tourniquet was applied to the right high calf. Right lower extremity was scrubb ed, prepped and draped utilizing normal aseptic technique. Right foot and ankle were exanguinated with an Esmarch bandage and tourniquet inflated to 250 mmHg. Attention was directed to the right rear foot where skin envelope was noted to be intact without fracture blister, laceration or abrasion. Utilizing intraoperative C arm the calcaneal fracture was further visualized. A Steinmann pin was utilized to traverse the interpositional fragment at the inferior calcaneal tuberosity to be distracted and reduced allowing further reduction of the body tongue type fracture. Steinmann pin was removed. Incision was made at the posterior superior heel with dissection carried down at the border of the Achilles tendon down to calcaneal bone utilizing a combination of sharp and blunt technique. Care was taken to retract and preserve neurovascular and tendinous structures. All bleeders were ligated and cauterized as necessary. The tongue type fracture of the right calcaneal body was reduced utilizing [id number] fracture reduction forceps and fixated utilizing standard AO technique with [place] 5.5 mm cannulated screws partially-threaded with excellent bony apposition and compression noted and maintained reduction of the body of the calcaneus. The incision was irrigated with copious amounts of sterile skin solution. AP, oblique, lateral and calcaneal views of mini C arm taken intraoperatively to confirm excellent placement of hardware without violating adjacent joints. The incision was further irrigated and closed with 4-0 nylon. The incision was then dressed with Xeroform, 4 x 4 gauze, Kerlix followed by application of a well-padded multilayer compressive posterior splint. Tourniquet was deflated and a prompt hyperemic response is noted to the distal digits of the right foot. Patient tolerated the procedure and anesthesia well and was transferred to the PACU with vital signs stable and vascular status intact. Following a period of postoperative monitoring he will be discharged home without home care instructions and scheduled follow-up was advised remain strict nonweightbearing.
[2024-07-01] MEDS: HYDROcodone-acetaminophen 10-325 mg Tablet 1 TAB PO (14:54)
== END 2024-07-01 12:45 | disposition home or self-care (01) ==
PROVIDERS: PCP Family Medicine; Visit Provider Podiatrist Foot & Ankle Surgery
PROC: (CPT 28415; principal; 2024-07-01 13:25)
DX: S92.014A Nondisplaced fracture of body of right calcaneus, initial encounter for closed fracture (principal); F17.200 Nicotine dependence, unspecified, uncomplicated; Z79.899 Other long term (current) drug therapy; W13.2XXA Fall from, out of or through roof, initial encounter
CPT/HCPCS: 28415; C1713; J0690; J1100; J2250; J2405; J2704; J3010; J7030; J9999

== ENCOUNTER → 2024-07-21 11:40 | Outpatient (BNVA) | payer OTHER, SELFPAY | PROVIDERS: PCP Family Medicine; Visit Provider Podiatrist Foot & Ankle Surgery | DX: Z98.890 Other specified postprocedural states (principal); S92.014D Nondisplaced fracture of body of right calcaneus, subsequent encounter for fracture with routine healing; X58.XXXD Exposure to other specified factors, subsequent encounter | CPT/HCPCS: 73650 ==

== ENCOUNTER 2024-07-21 12:03 | Outpatient (CLI) | payer OTHER, SELFPAY | END 2024-07-21 12:04 | disposition home or self-care (01) | LOC: SPT 12:04 | PROVIDERS: PCP Family Medicine; Visit Provider Podiatrist Foot & Ankle Surgery | DX: Z46.89 Encounter for fitting and adjustment of other specified devices (principal); S92.014D Nondisplaced fracture of body of right calcaneus, subsequent encounter for fracture with routine healing; X58.XXXD Exposure to other specified factors, subsequent encounter | CPT/HCPCS: L4361 ==

== ENCOUNTER → 2024-09-08 13:21 | Outpatient (BNVA) | payer OTHER, SELFPAY | PROVIDERS: PCP Family Medicine; Visit Provider Podiatrist Foot & Ankle Surgery | DX: S92.014D Nondisplaced fracture of body of right calcaneus, subsequent encounter for fracture with routine healing (principal); X58.XXXD Exposure to other specified factors, subsequent encounter | CPT/HCPCS: 73650 ==